=== PATIENT | male | born 1965 | race Caucasian/White ===

== ENCOUNTER 2018-02-27 16:58 | Inpatient (IN) | payer OTHER ==
[~2018-02-27] VITALS: Ht 188 cm; Wt 68.1 kg
[2018-02-27 17:12] LABS: ABG A-A DIFF O2 617.9 mmHg (10-20.0); ABG BASE EXCESS 2.8 mmol/L (-2.0-3.0); ABG CARBOXYHEMOGLOBIN 1.1 % (0.0-1.5); ABG HCO3 26.2 mmol/L (22.0-26.0); ABG METHEMOGLOBIN 0.2 % (0.0-1.5); ABG OXYGEN CONTENT 18.6 mL/dL (15.0-23.0); ABG OXYGEN SATURATION 88.2 % (95.0-98.0); ABG OXYHEMOGLOBIN 87.1 % (94.0-100.0); ABG PCO2 45 mmHg (35-45); ABG PH 7.406 (7.35-7.450); ABG TOTAL HEMOGLOBIN 15.2 G/dL (12.0-18.0); O2 DEVICE,BLOOD GAS NON REBREATHER (ROOM AIR); PO2, ARTERIAL BG 51.2 mmHg (84.0-92.0); SITE, BLOOD GAS LFT RADIAL; SOURCE, BLOOD GAS ARTERIAL
[2018-02-27] MEDS ORDERED: SODIUM CHLORIDE 0.9% 1,000 ML IV ONE ×2 (17:15)
[2018-02-27 17:22] LABS: BASOPHILS % (AUTO) 0.1 % (0.0-2.0); EOSINOPHILS % (AUTO) 0.4 % (1.0-6.0); HEMOGLOBIN 14.5 g/dL (13.5-17.5); LYMPHOCYTES # (AUTO) 0.3 K/uL (1.0-4.8); LYMPHOCYTES % (AUTO) 11.4 % (22.0-44.0); MEAN CORPUSCULAR HEMOGLOBIN 30.8 pg (26.0-34.0); MEAN CORPUSCULAR HGB CONC 34.6 G/dL (31.0-37.0); MEAN CORPUSCULAR VOLUME 89 fL (80-100); MONOCYTES # (AUTO) 0.2 K/uL (0.1-1.0); MONOCYTES % (AUTO) 7.2 % (2.0-9.0); NEUTROPHILS % (AUTO) 80.9 % (40.0-70.0); PLATELET COUNT (AUTO) 102 K/uL (150-450); RED BLOOD CELL COUNT(AUTO) 4.72 MIL/uL (4.50-5.90); RED CELL DISTRIBUTION WIDTH 13.6 % (11.5-14.5)
[2018-02-27] MEDS ORDERED: MOM30 PO (17:30)
[2018-02-27] MEDS ORDERED: SENN-175 PO (17:30)
[2018-02-27] MEDS ORDERED: LORA-192 PO (17:30)
[2018-02-27] MEDS ORDERED: TRAZ-147 PO (17:30)
[2018-02-27] MEDS ORDERED: MIRALAX PO (17:30)
[2018-02-27] MEDS ORDERED: NALO25TA PO (17:30)
[2018-02-27] MEDS ORDERED: BISA10SU22 PR (17:30)
[2018-02-27] MEDS ORDERED: GABA-531 PO (17:30)
[2018-02-27] MEDS ORDERED: DICY10 PO (17:30)
[2018-02-27] MEDS ORDERED: AMIT50TA3 PO (17:30)
[2018-02-27] MEDS ORDERED: OXYC10 PO (17:31)
[2018-02-27 17:33] LABS: INR 1.2 (0.9-1.1); PROTHROMBIN TIME 12.3 SEC (9.4-11.6)
[2018-02-27 17:34] LABS: ANION GAP 9 mmol/L (8-16); CALCIUM, TOTAL 9.2 mg/dL (8.8-10.5); CARBON DIOXIDE 28 mmol/L (22-29); CHLORIDE 97 mmol/L (98-107); CREATININE 1.14 mg/dL (0.60-1.30); GLOMERULAR FILTR. RATE CALC > 60 mL/min (>60); GLUCOSE,RANDOM 118 mg/dL (70-110); POTASSIUM 4.7 mmol/L (3.5-5.1); SODIUM SERUM 134 mmol/L (136-145); UREA NITROGEN, BLOOD 18 mg/dL (7-18)
[2018-02-27] MEDS ORDERED: LORA2TAB2 PO (17:34)
[2018-02-27 17:39] LABS: ALANINE AMINOTRANSFERASE 42 U/L (12-78); ALBUMIN 3.5 g/dL (3.4-5.0); ALKALINE PHOSPHATASE 58 U/L (46-116); ASPARTATE AMINOTRANSFERASE 27 U/L (15-37); BILIRUBIN,TOTAL 1.5 mg/dL (0.1-1.0); CREATINE KINASE, TOTAL 35 U/L (39-308); LIPASE 72 U/L (73-393)
[2018-02-27 17:45] LABS: LACTIC ACID 1.1 mmol/L (0.4-2.0)
[2018-02-27 18:12] LABS: B-TYPE NATRIURETIC PEPTIDE 47 pg/mL (0-100)
[2018-02-27] MEDS ORDERED: VANCOMYCIN HCL 1 GM/D5% WATER 200 ML IV ONE (18:15)
[2018-02-27] MEDS ORDERED: CefTRIAXone SODIUM 1 GM in DEXTROSE 5%-WATER 10 ML IV ONE (18:15)
[2018-02-27 18:32] LABS: APPEARANCE,URINE CLOUDY (CLEAR); GLUCOSE, URINE (UA) NEGATIVE (NEGATIVE); KETONES,URINE TRACE mg/dL (NEGATIVE); LEUKOCYTE ESTERASE ,URINE SMALL (NEGATIVE); NITRATE,URINE NEGATIVE (NEGATIVE); OCCULT BLOOD,URINE NEGATIVE (NEGATIVE); PH,URINE 5.5 (5.0-8.0); PROTEIN,URINE POS 1+ (NEGATIVE); UROBILINOGEN,URINE 0.2 mg/dL (<=1.0)
[2018-02-27 18:37] LABS: BILIRUBIN,URINE PRELIM. POSITIVE (NEGATIVE)
[2018-02-27 18:40] LABS: BACTERIA,URINE Few /HPF (None Seen); SQUAMOUS EPITHELIAL CELL,UR Few /LPF (None Seen)
[2018-02-27 18:41] LABS: CALCIUM OXALATE CRYSTALS,UR Moderate /LPF (None Seen)
[2018-02-27] MEDS ORDERED: PANTOPRAZOLE SODIUM 40 MG/VIAL IVP ONE (18:45)
[2018-02-27 18:50] LABS: AMPHET/METH SCREEN,URINE NEGATIVE (NEGATIVE); BARBITURATE SCREEN, URINE NEGATIVE (NEGATIVE); BENZODIAZEPINES SCREEN,URINE POSITIVE (NEGATIVE); CANNABINOID SCREEN,URINE POSITIVE (NEGATIVE); COCAINE SCREEN,URINE NEGATIVE (NEGATIVE); METHADONE SCREEN, URINE NEGATIVE (NEGATIVE); OPIATE SCREEN,URINE POSITIVE (NEGATIVE)
[2018-02-27 19:03] LABS: PHENCYCLIDINE SCREEN,URINE NEGATIVE (NEGATIVE)
[2018-02-27 19:44] LABS: ABG A-A DIFF O2 319.3 mmHg (10-20.0); ABG BASE EXCESS 0.7 mmol/L (-2.0-3.0); ABG CARBOXYHEMOGLOBIN 1.8 % (0.0-1.5); ABG HCO3 24.5 mmol/L (22.0-26.0); ABG METHEMOGLOBIN 0.6 % (0.0-1.5); ABG OXYGEN CONTENT 18.5 mL/dL (15.0-23.0); ABG OXYGEN SATURATION 96.1 % (95.0-98.0); ABG OXYHEMOGLOBIN 93.8 % (94.0-100.0); ABG PCO2 52 mmHg (35-45); ABG PH 7.331 (7.35-7.450); PO2, ARTERIAL BG 86.9 mmHg (84.0-92.0); SOURCE, BLOOD GAS ARTERIAL; TEMPERATURE, FAHRENHEIT, BG 99.8 FAHREN (96.0-98.6)
[2018-02-27 19:45] LABS: SITE, BLOOD GAS LFT RADIAL
[2018-02-27] MEDS ORDERED: ONDANSETRON HCL 4 MG/2 ML VIAL IVP PRN (19:45)
[2018-02-27] MEDS ORDERED: 0.9% SODIUM CHLORIDE 10 ML SYRINGE IVP PRN ×2 (19:45→21:00)
[2018-02-27] MEDS ORDERED: ACETAMINOPHEN 325 MG TABLET PO PRN (19:45)
[2018-02-27 20:50] LABS: LACTIC ACID 2.1 mmol/L (0.4-2.0)
[2018-02-27] MEDS: GABAPENTIN 300 MG CAPSULE PO SCH ×2 (21:00→22:58)
[2018-02-27] MEDS ORDERED: ALBUTEROL SULFATE 2.5 MG/0.5 ML NEB SOLUTION NEB PRN (21:00)
[2018-02-27] MEDS ORDERED: IPRATROPIUM BROMIDE 0.5 MG/2.5 ML NEB SOLUTION NEB PRN (21:00)
[2018-02-27] MEDS: PANTOPRAZOLE SODIUM 40 MG/VIAL IVP SCH (21:00)
[2018-02-27] MEDS: BISACODYL 10 MG RECTAL RECTAL SUPPOSITORY PR SCH (21:00)
[2018-02-27] MEDS ORDERED: ZOLPIDEM TARTRATE 5 MG TABLET PO PRN (21:00)
[2018-02-27 21:06] VITALS: BP 153/75
[2018-02-27 21:42] LABS: C-REACTIVE PROTEIN QUANT 10.61 mg/dL (0.00-0.30)
[2018-02-27] MEDS: POLYETHYLENE GLYCOL 3350 17 GM PACKET PO SCH ×2 (22:00→23:00)
[2018-02-27] MEDS: DICYCLOMINE HCL 10 MG CAPSULE PO SCH ×2 (22:00→23:00)
[2018-02-27] MEDS: SENNA 187 MG TABLET PO SCH ×2 (22:00→23:00)
[2018-02-27] MEDS: TraZODone HCL 100 MG TABLET PO SCH ×2 (22:00→23:00)
[2018-02-27] MEDS: AMITRIPTYLINE HCL 50 MG TABLET PO SCH ×2 (22:00→23:00)
[2018-02-27 22:43] LABS: ERYTHROCYTE SEDIMENTATION RATE 25 MM/HR (0-15)
[2018-02-27] MEDS: SODIUM CHLORIDE 0.9% 1,000 ML IV SCH (22:59)
[2018-02-28] VITALS (7 sets, daily range): BP systolic 101–121; BP diastolic 50–84
[2018-02-28] MEDS: HEPARIN SODIUM,PORCINE 5,000 UNITS/ML VIAL SQ SCH ×3 (01:06→16:25)
[2018-02-28] MEDS: IPRATROPIUM BROMIDE 0.5 MG/2.5 ML NEB SOLUTION NEB SCH ×4 (02:23→19:18)
[2018-02-28] MEDS: ALBUTEROL SULFATE 2.5 MG/0.5 ML NEB SOLUTION NEB SCH ×4 (02:23→19:18)
[2018-02-28] MEDS ORDERED: [UNRECOGNIZED DRUG - OTHER] PO SCH (06:30)
[2018-02-28 07:17] LABS: BASOPHILS % (AUTO) 0.3 % (0.0-2.0); EOSINOPHILS % (AUTO) 0 % (1.0-6.0); HEMATOCRIT 34.2 % (41-53); LYMPHOCYTES # (AUTO) 0.6 K/uL (1.0-4.8); LYMPHOCYTES % (AUTO) 24.7 % (22.0-44.0); MEAN CORPUSCULAR HGB CONC 34.9 G/dL (31.0-37.0); MEAN CORPUSCULAR VOLUME 89 fL (80-100); MONOCYTES # (AUTO) 0.2 K/uL (0.1-1.0); MONOCYTES % (AUTO) 8.9 % (2.0-9.0); NEUTROPHILS # (AUTO) 1.6 K/uL (1.8-7.7); NEUTROPHILS % (AUTO) 66.1 % (40.0-70.0); RED BLOOD CELL COUNT(AUTO) 3.85 MIL/uL (4.50-5.90); RED CELL DISTRIBUTION WIDTH 13.7 % (11.5-14.5)
[2018-02-28 07:40] LABS: PLATELET COUNT (AUTO) 92 K/uL (150-450)
[2018-02-28 07:59] LABS: ALANINE AMINOTRANSFERASE 26 U/L (12-78); ALBUMIN 2.9 g/dL (3.4-5.0); ALKALINE PHOSPHATASE 45 U/L (46-116); ANION GAP 5 mmol/L (8-16); ASPARTATE AMINOTRANSFERASE 24 U/L (15-37); BILIRUBIN,TOTAL 1.1 mg/dL (0.1-1.0); CARBON DIOXIDE 28 mmol/L (22-29); CHLORIDE 102 mmol/L (98-107); CREATININE 0.83 mg/dL (0.60-1.30); GLOMERULAR FILTR. RATE CALC > 60 mL/min (>60); GLUCOSE,RANDOM 99 mg/dL (70-110); POTASSIUM 4.5 mmol/L (3.5-5.1); SODIUM SERUM 135 mmol/L (136-145); TOTAL PROTEIN, SERUM 6.6 g/dL (6.4-8.2); UREA NITROGEN, BLOOD 17 mg/dL (7-18)
[2018-02-28] MEDS: PANTOPRAZOLE SODIUM 40 MG/VIAL IVP SCH (08:47)
[2018-02-28] MEDS: OxyCODONE HCL 10 MG ER TABLET PO SCH ×3 (08:48→16:26)
[2018-02-28] MEDS: BISACODYL 10 MG RECTAL RECTAL SUPPOSITORY PR SCH ×3 (08:48→20:00)
[2018-02-28] MEDS: GABAPENTIN 300 MG CAPSULE PO SCH ×3 (08:49→20:00)
[2018-02-28] MEDS: POLYETHYLENE GLYCOL 3350 17 GM PACKET PO SCH (08:49)
[2018-02-28] MEDS: DICYCLOMINE HCL 10 MG CAPSULE PO SCH ×3 (08:50→20:00)
[2018-02-28] MEDS: SENNA 187 MG TABLET PO SCH (08:50)
[2018-02-28] MEDS: VANCOMYCIN HCL 1 GM/D5% WATER 200 ML IV SCH ×2 (08:52→20:04)
[2018-02-28] MEDS: ACETAMINOPHEN 325 MG TABLET PO PRN (11:16)
[2018-02-28] MEDS: SODIUM CHLORIDE 0.9% 1,000 ML IV SCH (11:48)
[2018-02-28] MEDS: AMITRIPTYLINE HCL 50 MG TABLET PO SCH (20:00)
[2018-02-28] MEDS: TraZODone HCL 100 MG TABLET PO SCH (20:00)
[2018-02-28] MEDS: CefTRIAXone SODIUM 1 GM in DEXTROSE 5%-WATER 10 ML IV SCH (20:04)
[2018-03-01] MEDS: OxyCODONE HCL 10 MG ER TABLET PO SCH ×3 (00:43→16:03)
[2018-03-01] MEDS: HEPARIN SODIUM,PORCINE 5,000 UNITS/ML VIAL SQ SCH ×3 (00:43→16:03)
[2018-03-01] MEDS: IPRATROPIUM BROMIDE 0.5 MG/2.5 ML NEB SOLUTION NEB SCH ×4 (03:05→20:00)
[2018-03-01] MEDS: ALBUTEROL SULFATE 2.5 MG/0.5 ML NEB SOLUTION NEB SCH ×4 (03:05→20:00)
[2018-03-01 04:17] VITALS: BP 115/69
[2018-03-01 07:09] LABS: ANION GAP 7 mmol/L (8-16); CALCIUM, TOTAL 7.9 mg/dL (8.8-10.5); CARBON DIOXIDE 25 mmol/L (22-29); CHLORIDE 102 mmol/L (98-107); GLOMERULAR FILTR. RATE CALC > 60 mL/min (>60); GLUCOSE,RANDOM 84 mg/dL (70-110); POTASSIUM 3.5 mmol/L (3.5-5.1); SODIUM SERUM 134 mmol/L (136-145); UREA NITROGEN, BLOOD 9 mg/dL (7-18)
[2018-03-01 07:26] VITALS: BP 107/65
[2018-03-01] MEDS: SODIUM CHLORIDE 0.9% 1,000 ML IV SCH (08:00)
[2018-03-01] MEDS: BISACODYL 10 MG RECTAL RECTAL SUPPOSITORY PR SCH ×5 (09:00→20:54)
[2018-03-01] MEDS: GABAPENTIN 300 MG CAPSULE PO SCH ×5 (11:04→22:53)
[2018-03-01] MEDS: PANTOPRAZOLE SODIUM 40 MG/VIAL IVP SCH (11:04)
[2018-03-01] MEDS: VANCOMYCIN HCL 1 GM/D5% WATER 200 ML IV SCH (11:04)
[2018-03-01] MEDS: SENNA 187 MG TABLET PO SCH (11:05)
[2018-03-01] MEDS: POLYETHYLENE GLYCOL 3350 17 GM PACKET PO SCH (11:05)
[2018-03-01] MEDS: DICYCLOMINE HCL 10 MG CAPSULE PO SCH ×4 (11:05→20:53)
[2018-03-01] MEDS: ONDANSETRON HCL 4 MG/2 ML VIAL IVP PRN ×2 (11:21→16:03)
[2018-03-01 11:25] VITALS: BP 98/68
[2018-03-01 15:16] VITALS: BP 106/60
[2018-03-01] MEDS: VANCOMYCIN HCL 750 MG in DEXTROSE 5%-WATER 250 ML IV SCH (16:03)
[2018-03-01] MEDS: CefTRIAXone SODIUM 1 GM in DEXTROSE 5%-WATER 10 ML IV SCH (18:22)
[2018-03-01 19:45] VITALS: BP 109/65
[2018-03-01] MEDS: ACETAMINOPHEN 325 MG TABLET PO PRN (20:33)
[2018-03-01] MEDS: AMITRIPTYLINE HCL 50 MG TABLET PO SCH ×2 (20:33→20:53)
[2018-03-01] MEDS: TraZODone HCL 100 MG TABLET PO SCH ×3 (20:33→22:53)
[2018-03-01] MEDS: MAGNESIUM HYDROXIDE SUSPENSION 30 ML UDCUP PO SCH ×3 (20:33→22:53)
[2018-03-02] MEDS: VANCOMYCIN HCL 750 MG in DEXTROSE 5%-WATER 250 ML IV SCH ×2 (00:13→08:34)
[2018-03-02] MEDS: IPRATROPIUM BROMIDE 0.5 MG/2.5 ML NEB SOLUTION NEB SCH ×2 (01:52→08:00)
[2018-03-02] MEDS: ALBUTEROL SULFATE 2.5 MG/0.5 ML NEB SOLUTION NEB SCH ×2 (01:52→08:00)
[2018-03-02] MEDS ORDERED: AUD NEB (06:53)
[2018-03-02 06:55] VITALS: BP 105/60
[2018-03-02] MEDS ORDERED: AMIT50TA3 PO (06:56)
[2018-03-02] MEDS ORDERED: HEPA500035 SQ (07:01)
[2018-03-02] MEDS ORDERED: IPRNEB IH (07:14)
[2018-03-02] MEDS: HEPARIN SODIUM,PORCINE 5,000 UNITS/ML VIAL SQ SCH ×2 (08:00)
[2018-03-02] MEDS: BISACODYL 10 MG RECTAL RECTAL SUPPOSITORY PR SCH ×2 (08:16→08:49)
[2018-03-02] MEDS: PANTOPRAZOLE SODIUM 40 MG/VIAL IVP SCH (08:34)
[2018-03-02] MEDS: OxyCODONE HCL 10 MG ER TABLET PO SCH ×2 (08:34)
[2018-03-02] MEDS: POLYETHYLENE GLYCOL 3350 17 GM PACKET PO SCH ×2 (08:35→08:39)
[2018-03-02] MEDS: SENNA 187 MG TABLET PO SCH ×2 (08:35→08:44)
[2018-03-02] MEDS: DICYCLOMINE HCL 10 MG CAPSULE PO SCH ×2 (08:35→08:43)
[2018-03-02] MEDS: MAGNESIUM HYDROXIDE SUSPENSION 30 ML UDCUP PO SCH ×2 (08:35→08:39)
[2018-03-02] MEDS: GABAPENTIN 300 MG CAPSULE PO SCH (08:35)
[2018-03-02] MEDS: ACETAMINOPHEN 325 MG TABLET PO PRN (10:26)
[2018-03-02 11:21] VITALS: BP 117/62
[2018-03-02] MEDS: SODIUM CHLORIDE 0.9% 1,000 ML IV SCH (12:17)
== END 2018-03-02 13:10 | disposition home or self-care (01) | DRG 720 ==
LOC: EMS 16:59 → 5S 18:47 → 5N 03-01 06:00
PROVIDERS: ADMIT Internal Medicine; ATTEND Internal Medicine
PROC: 5A09357 Assistance with Respiratory Ventilation, Less than 24 Consecutive Hours, Continuous Positive Airway Pressure (ICD-10-PCS; principal; 2018-02-27)
DX: A41.9 Sepsis, unspecified organism (principal); J96.01 Acute respiratory failure with hypoxia; J90 Pleural effusion, not elsewhere classified; J18.9 Pneumonia, unspecified organism; J96.02 Acute respiratory failure with hypercapnia; G82.20 Paraplegia, unspecified; F11.20 Opioid dependence, uncomplicated; N31.9 Neuromuscular dysfunction of bladder, unspecified; E44.1 Mild protein-calorie malnutrition; F32.9 Major depressive disorder, single episode, unspecified; G89.4 Chronic pain syndrome; I45.10 Unspecified right bundle-branch block; F41.9 Anxiety disorder, unspecified; J98.11 Atelectasis; Z22.322 Carrier or suspected carrier of Methicillin resistant Staphylococcus aureus; Z68.1 Body mass index [BMI] 19.9 or less, adult
CPT/HCPCS: 51702; 71250; 82270; 82271; 82308; 82805; 83605; 83735; 84145; 85651; 86140; 87040; 87081; 93005; 93970; 94640; 94660; 96374; 99291; C9113; J0696; J1644; J2405; J3370; J7030; J7060

== ENCOUNTER 2020-01-16 16:34 | Emergency (ER) | payer OTHER ==
[~2020-01-16] VITALS: Ht 188 cm; Wt 72.7 kg
[~2020-01-16 16:34] MED LIST: AMIT50TA3 PO; AUD NEB; BISA10SU22 PR; DICY10 PO; GABA-531 PO; HEPA500035 SQ; IPRNEB IH; LORA-1001 PO; MIRALAX PO; MOM30 PO; NALO25TA PO; OXYC10TA59 PO; SENN-277 PO; TRAZ-257 PO
[2020-01-16] MEDS ORDERED: KDUR10 PO (17:02)
[2020-01-16] MEDS ORDERED: BACL10TA PO (17:02)
[2020-01-16] MEDS ORDERED: SIME80TA PO (17:02)
[2020-01-16] MEDS ORDERED: DULO60CA44 PO (17:02)
[2020-01-16] MEDS ORDERED: DICY10 PO (17:02)
[2020-01-16 17:27] LABS: BASOPHILS % (AUTO) 0.7 % (0.0-2.0); EOSINOPHILS % (AUTO) 2.1 % (1.0-6.0); HEMATOCRIT 41.4 % (41-53); HEMOGLOBIN 13.6 g/dL (13.5-17.5); LYMPHOCYTES # (AUTO) 0.9 K/uL (1.0-4.8); LYMPHOCYTES % (AUTO) 24.1 % (22.0-44.0); MEAN CORPUSCULAR HEMOGLOBIN 29.2 pg (26.0-34.0); MEAN CORPUSCULAR HGB CONC 32.8 G/dL (31.0-37.0); MEAN CORPUSCULAR VOLUME 89 fL (80-100); MONOCYTES # (AUTO) 0.3 K/uL (0.1-1.0); MONOCYTES % (AUTO) 9.6 % (2.0-9.0); NEUTROPHILS # (AUTO) 2.3 K/uL (1.8-7.7); NEUTROPHILS % (AUTO) 63.5 % (40.0-70.0); PLATELET COUNT (AUTO) 176 K/uL (150-450); RED BLOOD CELL COUNT(AUTO) 4.65 MIL/uL (4.50-5.90); RED CELL DISTRIBUTION WIDTH 13.8 % (11.5-14.5)
[2020-01-16 17:45] LABS: ANION GAP 8 mmol/L (8-16); CALCIUM, TOTAL 9.5 mg/dL (8.8-10.5); CARBON DIOXIDE 30 mmol/L (22-29); CHLORIDE 102 mmol/L (98-107); CREATININE 1.08 mg/dL (0.60-1.30); GLOMERULAR FILTR. RATE CALC > 60 mL/min (>60); GLUCOSE,RANDOM 110 mg/dL (70-110); POTASSIUM 3.9 mmol/L (3.5-5.1); SODIUM SERUM 140 mmol/L (136-145); UREA NITROGEN, BLOOD 10 mg/dL (7-18)
[2020-01-16 17:47] LABS: ALANINE AMINOTRANSFERASE 52 U/L (12-78); ALBUMIN 3.5 g/dL (3.4-5.0); ALKALINE PHOSPHATASE 78 U/L (46-116); ASPARTATE AMINOTRANSFERASE 42 U/L (15-37); BILIRUBIN,TOTAL 0.4 mg/dL (0.1-1.0); TOTAL PROTEIN, SERUM 8.2 g/dL (6.4-8.2)
[2020-01-16 18:17] LABS: AMPHET/METH SCREEN,URINE NEGATIVE (NEGATIVE); BARBITURATE SCREEN, URINE NEGATIVE (NEGATIVE); BENZODIAZEPINES SCREEN,URINE NEGATIVE (NEGATIVE); CANNABINOID SCREEN,URINE NEGATIVE (NEGATIVE); COCAINE SCREEN,URINE NEGATIVE (NEGATIVE); METHADONE SCREEN, URINE NEGATIVE (NEGATIVE); OPIATE SCREEN,URINE POSITIVE (NEGATIVE); PHENCYCLIDINE SCREEN,URINE NEGATIVE (NEGATIVE)
[2020-01-16 20:20] VITALS: BP 118/76
== END 2020-01-16 20:24 | disposition home or self-care (01) ==
LOC: EMS 16:36
DX: K94.09 Other complications of colostomy (principal); R44.3 Hallucinations, unspecified; F41.9 Anxiety disorder, unspecified; F32.9 Major depressive disorder, single episode, unspecified
CPT/HCPCS: 36415; 80053; 80307; 85025; 99285; G0480